=== PATIENT | male | born 1990 | race Asian ===

== ENCOUNTER 2022-07-31 11:30 | Emergency (ER) | payer OTHER ==
[~2022-07-31] VITALS: Ht 175.3 cm; Wt 104.3 kg
[2022-07-31 11:30] VITALS: BP 139/79; TEMP 97
== END 2022-07-31 12:58 | disposition home or self-care (01) ==
LOC: ED 11:30
PROC: 0H9JXZZ Drainage of Left Upper Leg Skin, External Approach (ICD-10-PCS; principal; 2022-07-31)
DX: L02.416 Cutaneous abscess of left lower limb (principal)
CPT/HCPCS: 87070; 87205; 99282